=== PATIENT | female | born 1960 | race African-American/Black ===

== ENCOUNTER 2025-01-08 08:29 | Emergency (ER) | payer BC ==
[~2025-01-08] VITALS: Ht 165.1 cm; Wt 66.0 kg
[2025-01-08 08:35] VITALS: O2SAT 100
[2025-01-08 09:44] VITALS: BP 130/108; PULSE 60; RESP 16; TEMP 36.9; O2SAT 100
== END 2025-01-08 10:01 | disposition home or self-care (01) ==
LOC: ER 08:29
DX: M79.641 Pain in right hand (principal); M19.041 Primary osteoarthritis, right hand; Z88.1 Allergy status to other antibiotic agents; Z90.49 Acquired absence of other specified parts of digestive tract; Z90.710 Acquired absence of both cervix and uterus; Z96.659 Presence of unspecified artificial knee joint; W22.09XA Striking against other stationary object, initial encounter; X58.XXXA Exposure to other specified factors, initial encounter; Y93.89 Activity, other specified; Y92.89 Other specified places as the place of occurrence of the external cause; Y99.8 Other external cause status
CPT/HCPCS: 29125; 73130; 99283